=== PATIENT | female | born 1955 | race Caucasian/White ===

== ENCOUNTER 2017-01-30 08:30 | Day surgery (SDC) | payer OTHER ==
[~2017-01-30] VITALS: Ht 167.6 cm; Wt 67.7 kg
[2017-01-30 10:22] VITALS: Ht 167.6 cm; Wt 67.7 kg
[2017-01-30 10:53] VITALS: BP 119/58; PULSE 51; RESP 17
--- NOTE | 2017-01-30 11:44 | GILP ---
DATE OF PROCEDURE: 01/30/2017 NAME OF PROCEDURE: Colonoscopy. SURGEON: Giovana Dinh MD PREOPERATIVE DIAGNOSIS: Screening colonoscopy. POSTOPERATIVE DIAGNOSES: 1. Colonoscopy all the way to the cecum. 2. Diverticulosis of the colon. 3. Internal hemorrhoids. 4. No colon neoplasm was identified. INDICATION FOR THE PROCEDURE: Ms. Lani Zarate is a 61-year-old female patient who was scheduled fo r screening colonoscopy. The procedure and possible complications were well explained to the patient. The patient understood and consented to the procedure. DESCRIPTION OF PROCEDURE: Under the influence of anesthesia, the colonoscope was carefully introduc ed in the rectum and under direct vision, it was advanced all the way to the cecum. FINDINGS: The patient had diverticulosis of the colon. She also had internal hemorrhoids. No colo n neoplasm was identified. She tolerated the procedure very well and there was no complication from the procedure. At the end of the procedure, she was awake with stable vital signs and she was discharged home to the care of h er family. IMPRESSION: 1. Colonoscopy all the way to the cecum. 2. Diverticulosis of the colon. 3. Internal hemorrhoids. 4. No colon neoplasm was identified. PLAN: Next screening colonoscopy in 10 years. Dictated By: GIOVANA JARRELL/LIZY Conf#: [id number] DID#: [id number] CC: GIOVANA DINH MD;*EndCC*
== END 2017-01-30 12:45 | disposition home or self-care (01) ==
LOC: GIL 08:30
PROVIDERS: ATTEND Internal Medicine Gastroenterology
DX: Z12.11 Encounter for screening for malignant neoplasm of colon (principal); K57.90 Diverticulosis of intestine, part unspecified, without perforation or abscess without bleeding; K64.8 Other hemorrhoids
CPT/HCPCS: 45378; Z7610